=== PATIENT | female | born 1990 | race Caucasian/White ===

== ENCOUNTER 2017-01-06 | Inpatient (IN) | payer OTHER ==
[~2017-01-06] MED LIST: ACETA-GESIC 321 EACH PO; CUBICIN RF500 MG IV; HYDROCODON-ACE1 EA16 PO; KLONOPIN0.5 M1 PO; PAIN & FEVER325 M1 PO; PERCOCET 10-321 EACH PO; TYLENOL325 M2 PO; XANAX0.5 M1 PO
[2017-01-06 00:49] LABS: BASO % 0.4 % (0-2); EOS % 1.1 % (0-7); EOSINOPHIL ABSOLUTE COUNT 0.1 tho/cmm (0.0-0.7); HCT-HEMATOCRIT 40.5 % (34.0-49.0); HGB-HEMOGLOBIN 13.9 gm/dl (12.0-15.5); IMMATURE GRANULOCYTES ABSOLUTE 0.01 tho/cmm (0-0.03); IMMATURE GRANULOCYTES PERCENT 0.1 % (0-0.3); LYMPH % 24.4 % (20-45); MCH (MEAN CORPUSCULAR HGB) 29.4 pg (28.0-32.0); MCHC MEAN CORPUSCULAR HGB CONC 34.3 % (32.0-36.0); MCV (MEAN CELL VOLUME) 85.6 fl (82.0-96.0); MEAN PLATELET VOLUME 8.4 cmc (9.4-12.4); MONO % 7.8 % (0-12); MONOCYTE ABSOLUTE COUNT 0.6 tho/cmm (0.0-1.2); NEUTROPHIL ABSOLUTE COUNT 5.4 tho/cmm (1.6-8.0); NEUTROPHIL-AUTOMATED 5.4 tho/cmm (1.6-8.0); NEUTROPHILS % 66.2 % (40-80); PLATELET COUNT 340 tho/cmm (150-450); RED BLOOD COUNT 4.73 mil/cmm (4.00-5.20); RED CELL DISTRIBUTION WIDTH 14.1 % (12.4-16.4); WHITE BLOOD COUNT 8.1 tho/cmm (4.0-10.0)
[2017-01-06 01:02] LABS: ALB/GLOB RATIO 0.5 (0.8-2.0); ALBUMIN 2.7 g/dl (3.5-5.0); ALKALINE PHOSPHATASE 95 U/L (33-138); ALT/SGPT 41 U/L (12-78); ANION GAP 9 mmol/L (0-20); AST/SGOT 25 U/L (10-40); BILIRUBIN,TOTAL 0.3 mg/dl (0-1.5); BLOOD UREA NITROGEN 9 mg/dl (6-24); C-REACTIVE PROTEIN 10.1 mg/dl (0-0.9); CALCIUM 8.7 mg/dl (8.5-10.5); CARBON DIOXIDE-VENOUS 30 mmol/L (22-32); CHLORIDE 102 mmol/l (96-110); CREATININE 0.43 mg/dl (0.50-1.10); GLUCOSE 97 mg/dL (70-110); POTASSIUM 3.9 mmol/L (3.7-5.1); SODIUM 137 mmol/L (135-145); eGFR VALUE FOR BLACK >90 mL/Min
[2017-01-06 01:19] LABS: ESR-ERYTHROCYTE SED RATE 28 mm/hr (0-20)
[2017-01-06 01:20] LABS: PROCALCITONIN 0.19 ng/ml (0.05-0.09)
[2017-01-06 02:41] LABS: URINE BILIRUBIN NEGATIVE (NEG); URINE BLOOD NEGATIVE (NEG); URINE GLUCOSE (UA) NEGATIVE (NEG); URINE KETONE NEGATIVE (NEG); URINE LEUKOCYTE ESTERASE POSITIVE (NEG); URINE NITRITE NEGATIVE (NEG); URINE PH 6.5 (5.0-8.0); URINE PROTEIN SMALL (NEG); URINE SPECIFIC GRAVITY 1.005 (1.003-1.030)
[2017-01-06 02:42] LABS: URINE APPEARANCE HAZY; URINE COLOR YELLOW
[2017-01-06 02:56] LABS: URINE EPITHELIAL CELLS RARE /[HPF] (0-10); URINE RBC 0 /[HPF] (0-5); URINE WBC 0-1 /[HPF] (0-5)
[2017-01-06] MEDS ORDERED: NO HOME MEDICATION XX (02:58)
[2017-01-09 05:46] LABS: BASO % 0.4 % (0-2); EOS % 2.8 % (0-7); EOSINOPHIL ABSOLUTE COUNT 0.2 tho/cmm (0.0-0.7); HCT-HEMATOCRIT 32.6 % (34.0-49.0); HGB-HEMOGLOBIN 10.9 gm/dl (12.0-15.5); IMMATURE GRANULOCYTES ABSOLUTE 0.03 tho/cmm (0-0.03); IMMATURE GRANULOCYTES PERCENT 0.6 % (0-0.3); LYMPH % 39.2 % (20-45); LYMPH ABSOLUTE COUNT 2.1 tho/cmm (0.8-4.5); MCH (MEAN CORPUSCULAR HGB) 29.1 pg (28.0-32.0); MCHC MEAN CORPUSCULAR HGB CONC 33.4 % (32.0-36.0); MCV (MEAN CELL VOLUME) 86.9 fl (82.0-96.0); MEAN PLATELET VOLUME 7.8 cmc (9.4-12.4); MONO % 7.9 % (0-12); MONOCYTE ABSOLUTE COUNT 0.4 tho/cmm (0.0-1.2); NEUTROPHIL ABSOLUTE COUNT 2.7 tho/cmm (1.6-8.0); NEUTROPHIL-AUTOMATED 2.7 tho/cmm (1.6-8.0); NEUTROPHILS % 49.1 % (40-80); PLATELET COUNT 392 tho/cmm (150-450); RED BLOOD COUNT 3.75 mil/cmm (4.00-5.20); RED CELL DISTRIBUTION WIDTH 14.2 % (12.4-16.4); WHITE BLOOD COUNT 5.4 tho/cmm (4.0-10.0)
[2017-01-09 05:54] LABS: ANION GAP 12 mmol/L (0-20); BLOOD UREA NITROGEN 7 mg/dl (6-24); CALCIUM 8.3 mg/dl (8.5-10.5); CARBON DIOXIDE-VENOUS 28 mmol/L (22-32); CHLORIDE 105 mmol/l (96-110); CREATININE 0.46 mg/dl (0.50-1.10); GLUCOSE 95 mg/dL (70-110); MAGNESIUM 2.5 mg/dl (1.8-2.6); POTASSIUM 4.1 mmol/L (3.7-5.1); SODIUM 141 mmol/L (135-145); eGFR VALUE FOR BLACK >90 mL/Min
--- NOTE | 2017-01-11 14:27 | NUR ---
@ 9897 WENT INTO PT'S ROOM TO INFORM PT THAT DR POTTER WAS NOTIFIED OF HER WANTING TO DISCHARGE. DR POTTER STATED THAT HE WOULD NOT PRESCRIBE OUTPATIENT ANTIBIOTICS. PT VERBALIZES THIS "IS SO FUCKING STUPID. I HAVE A JOB. I HAVE A LIFE. I NEED TO GO HOME." PT CALLED MOM AND VERBALIZED FRUSTRATION. RN SPOKE WITH PT'S MOM AND REPORTED THAT DR POTTER WAS NOT GOING TO DISCHARGE PT AND WOULD SEE PT TOMORROW. PT'S MOTHER VERBALIZED CONCERN ABOUT DR POTTER NOT KNOWING THAT PT'S LIVING SITUATION HAD CHANGED. RN GAVE PT'S MOM DR POTTER'S PHONE NUMBER. PT'S MOM OFF PHONE AND PT STATED THAT "I'M NOT A BABY. I DONT' NEED MY MOM CALLING THE DOCTOR." PT CRYING.
[2017-01-11] MEDS ORDERED: KEFLEX500 M4 PO (16:39)
[2017-01-11] MEDS ORDERED: CUBICIN RF500 MG IV (16:40)
== END 2017-01-11 16:50 | DRG 871 ==
LOC: EDMED → EMR2 04:13 → 5WF 07:05
PROVIDERS: Emergency Medicine; Internal Medicine; ADMIT Hospitalist
DX: A41.01 Sepsis due to Methicillin susceptible Staphylococcus aureus (principal); I26.90 Septic pulmonary embolism without acute cor pulmonale; I33.0 Acute and subacute infective endocarditis; F41.9 Anxiety disorder, unspecified; I36.1 Nonrheumatic tricuspid (valve) insufficiency; J45.909 Unspecified asthma, uncomplicated; Z72.0 Tobacco use; F19.90 Other psychoactive substance use, unspecified, uncomplicated; B95.61 Methicillin susceptible Staphylococcus aureus infection as the cause of diseases classified elsewhere; Z91.14 Patient's other noncompliance with medication regimen
CPT/HCPCS: A9503; C1751; C8925; C8929; J0878; J1885; J2270; J2543; J3370; J7030; Q9967